=== PATIENT | female | born 1985 | race Hispanic/Latino ===

== ENCOUNTER 2022-04-01 11:11 | Emergency (ER) | payer SELFPAY ==
--- NOTE | ~2022-04-01 | XR_ITS ---
EXAMINATION: XR chest 2V DATE: 04/01/2022 12:08 INDICATION: Cough and congestion. TECHNIQUE: Frontal and lateral views of the chest were obtained. COMPARISON: None. FINDINGS: The chest demonstrates clear lungs without pneumonia, pleural effusion, or pneumothorax. Th e heart size is normal. IMPRESSION: 1. No acute cardiopulmonary disease. Reviewed, dictated and finalized at location A.
[2022-04-01 11:26] VITALS: BP 135/77; PULSE 74; RESP 18; TEMP 36.7; O2SAT 99
--- NOTE | 2022-04-01 11:33 | ED.URI ---
HPI - URI/Sore Throat General Chief Complaint: Upper Respiratory Infection Stated Complaint: Cough,Back Pain, SOB Time Seen by Provider: 04/01/22 11:35 Source: patient Mode of arrival: ambulatory Limitations: no limitations History of Present Illness HPI Narrative: Mr. Allen is a 36-year-old female patient presenting to the clinic today with complaints of a cough, throat discomfort from cough, shortness of breath, and chest discomfort with taking deep breath and coughing. She denies any history of asthma or COPD. She denies any known exposure to anyone with COVID or flu. Reports that she is having difficulty getting deep breaths in. She has brought up a little bit of sputum with potential blood. She denies any fever or chills. She denies being a smoker or vaping. SPO2 is 99% on room air in the clinic today MD elicited complaint: cough, sore throat, nasal congestion and other (Shortness of breath) Related Data Allergies Allergy/AdvReac Type Severity Reaction Status Date / Time No Known Allergies Allergy Verified 04/01/22 11:45 Review of Systems Review of Systems: Pertinent positives per HPI. Patient denies any fever, chills, rash, headache, visual changes, dizziness, palpitations, nausea, vomiting, diarrhea, constipation, abdominal pain, or any urinary issues. [facility] Comments At the time of my signature, I reviewed and agree with the nursing past medical, surgical, social, and family history. There is no relevant family history pertinent to the patient complaint. Exam Narrative: General: Well-developed, morbidly obese, in no apparent distress Head: Normocephalic, atraumatic Eyes: Pupils equally round and reactive to light bilaterally, EOM intact, sclera and conjunctive clear, no discharge, lids normal Ears: TMs intact and clear, ear canals clear, no drainage, grossly hearing normal. Nose: Nares patent, no discharge, no inflammation, no sinus tenderness. Mouth: Oral pharynx without lesions or masses, good dentition, MMM. Neck: Supple, trachea midline, no enlargement of anterior or posterior cervical nodes, no thyroid masses or goiter palpable. Cardio: Regular rate and rhythm, s1 and s2 normal, no murmur appreciated. Resp: Lung sounds diminished throughout, no rhonchi, rales, wheezing or rubs Course Course Emergency Course: Portions of this record may have been created with voice recognition software. Level of Care: Express Care Visit Vital Signs Vital signs: Vital Signs Temperature 36.7 C 04/01/22 11:26 Pulse Rate 74 04/01/22 11:26 Respiratory Rate 18 04/01/22 11:26 Blood Pressure 135/77 04/01/22 11:26 Pulse Oximetry 99 04/01/22 11:26 Oxygen Delivery Room Air 04/01/22 11:26 Temperature 36.7 C 04/01/22 11:26 Pulse Rate 74 04/01/22 11:26 Respiratory Rate 18 04/01/22 11:26 Blood Pressure 135/77 04/01/22 11:26 Pulse Oximetry 99 04/01/22 11:26 Oxygen Delivery Room Air 04/01/22 11:26 Vital signs reviewed MDM - URI/Sore Throat MDM Narrative Medical decision making narrative: At the time of visit patient is resting on the exam table. COVID testing was obtained and was negative. Chest x-ray and DuoNeb handheld treatment was given in the clinic today. Radiologist read x-ray is negative for any acute cardiopulmonary disease. Differential Diagnosis Differential diagnosis: Likely upper respiratory infection, sinusitis, viral infection, bronchitis, influenza, pharyngitis and other Discharge Plan Discharge Clinical Impression: Shortness of breath, Cough Patient Disposition: Home, Self-Care Condition: Stable Instructions: Antibiotic Form, Reactive Airways Disease (ED) Additional Instructions: Covid da negativo en la cl?melany [place] Radiograf?a de t?rax negativa para cualquier signo de enfermedad cardiopulmonar o neumon?a Tratamiento de respiraci?n manual dado en la cl?melany hoy [place] los medicamentos recetados solo seg?n lo prescrito: albuterol y predniso
[2022-04-01] MEDS: IPRATROPIUM BR 0.02% INH SOLN 0.5 MG/2.5 ML VIAL INHALATION (12:10)
[2022-04-01] MEDS: ALBUTEROL SULFATE NEB 2.5 MG/3 ML INH INHALATION (12:10)
== END 2022-04-01 12:45 | disposition home or self-care (01) ==
PROVIDERS: Emergency Provider Nurse Practitioner Family
DX: R06.02 Shortness of breath (principal); R05.9 Cough, unspecified; Z20.822 Contact with and (suspected) exposure to COVID-19
CPT/HCPCS: 71046; 87426; 94640; 99213; C9803; G0463